=== PATIENT | male | born 1950 | race Two or more races ===

== ENCOUNTER 2021-02-28 15:21 | Inpatient (IN) | payer MEDICARE, MEDICAID ==
[~2021-02-28] VITALS: Ht 182.9 cm; Wt 76.7 kg
[2021-02-28] MEDS ORDERED: HYDROCODONE/ACETAMINOPHEN 5/325MG TABLET PO STA (18:25)
[2021-02-28] MEDS ORDERED: SODIUM CHLORIDE 0.9% 1,000 ML IV ONE (18:30)
[2021-02-28 22:55] LABS: BASOPHILS % 0.5 % (0.0-2.0); EOSINOPHILS % 1.6 % (0.0-5.0); HEMATOCRIT. 31.6 % (42.0-52.0); HEMOGLOBIN. 10.7 g/dL (14.0-18.0); LYMPHOCYTES % 20.6 % (20.0-50.0); MEAN CORPUSCULAR HEMOGLOBIN 31.7 pg (28.0-32.0); MEAN CORPUSCULAR VOLUME 93.6 fL (80.0-94.0); MEAN PLATELET VOLUME 7.8 fl (7.4-10.4); MONOCYTES % 6.6 % (2.0-8.0); NEUTROPHILS % 70.7 % (40.0-76.0); PLATELET 364 x1000/uL (130-400); RED BLOOD CELL COUNT 3.37 mill/uL (4.7-6.1); RED CELL DISTRIBUTION WIDTH 15.1 % (11.6-14.6)
[2021-02-28 23:08] LABS: CHLORIDE 112 mEq/L (98-107)
[2021-02-28 23:17] LABS: CREATINE KINASE 107 IU/L (39-308)
[2021-03-01] VITALS (7 sets, daily range): BP systolic 111–163; BP diastolic 68–92
[2021-03-01] MEDS ORDERED: NALOXONE HCL 0.4MG/ML VIAL IV PRN (09:00)
[2021-03-01] MEDS ORDERED: ACETAMINOPHEN 325MG TABLET PO PRN (09:00)
[2021-03-01] MEDS ORDERED: ONDANSETRON HCL 4MG/2ML INJ IV PRN (09:00)
[2021-03-01] MEDS: HYDROCODONE/ACETAMINOPHEN 5/325MG TABLET PO PRN ×2 (19:02→23:56)
[2021-03-02] VITALS: BP 140/74
[2021-03-02 08:00] VITALS: BP 140/71
[2021-03-02] MEDS ORDERED: CLONIDINE 0.1MG TABLET PO PRN ×2 (11:45→17:00)
[2021-03-02] MEDS ORDERED: IPRATROPIUM/ALBUTEROL 0.5-3(2.5)MG/3ML NEB HHN PRN (11:45)
[2021-03-02 12:00] VITALS: BP 107/69
[2021-03-02] MEDS: DEXT 5%/0.45% NACL 1000ML 1,000 ML IV SCH (12:41)
[2021-03-02] MEDS: MULTIVITAMINS,THER W-MINERALS TABLET PO SCH (12:42)
[2021-03-02] MEDS: FOLIC ACID 1MG TABLET PO SCH (12:42)
[2021-03-02] MEDS: THIAMINE HCL 100MG TABLET PO SCH (12:43)
[2021-03-02] MEDS: ENOXAPARIN 40MG/0.4ML SYR SUBCUT SCH (12:47)
[2021-03-02 16:00] VITALS: BP 143/80
[2021-03-02] MEDS: AMLODIPINE 2.5MG TABLET PO SCH (17:31)
[2021-03-02] MEDS: HYDROCODONE/ACETAMINOPHEN 5/325MG TABLET PO PRN ×2 (17:33→22:52)
[2021-03-02 17:35] LABS: PROTHROMBIN TIME 10.7 sec (9.6-11.0)
[2021-03-02 17:40] LABS: CHLORIDE 104 mEq/L (98-107)
[2021-03-02 17:42] LABS: BASOPHILS % 0.5 % (0.0-2.0); EOSINOPHILS % 0.4 % (0.0-5.0); HEMATOCRIT. 32.4 % (42.0-52.0); HEMOGLOBIN. 10.9 g/dL (14.0-18.0); LYMPHOCYTES % 10.6 % (20.0-50.0); MEAN CORPUSCULAR HEMOGLOBIN 31.7 pg (28.0-32.0); MONOCYTES % 5.3 % (2.0-8.0); NEUTROPHILS % 83.2 % (40.0-76.0); PLATELET 333 x1000/uL (130-400); RED BLOOD CELL COUNT 3.45 mill/uL (4.7-6.1); RED CELL DISTRIBUTION WIDTH 14.7 % (11.6-14.6)
[2021-03-02 17:47] LABS: LDL CHOLESTEROL 55 mg/dL (5-100)
[2021-03-02 17:48] LABS: HDL CHOLESTEROL 43 mg/dL (40-59)
[2021-03-02 20:00] VITALS: BP 136/78
[2021-03-02] MEDS: FAMOTIDINE 20MG TABLET PO SCH (20:04)
[2021-03-03] MEDS: DEXT 5%/0.45% NACL 1000ML 1,000 ML IV SCH ×2 (01:20→14:40)
[2021-03-03] MEDS: MORPHINE SULFATE 2 MG/ML CPJ (NOT FOR IM USE) IV PRN ×2 (04:03→20:04)
[2021-03-03 06:29] LABS: BASOPHILS % 0.6 % (0.0-2.0); EOSINOPHILS % 1.4 % (0.0-5.0); HEMATOCRIT. 30.5 % (42.0-52.0); HEMOGLOBIN. 10.3 g/dL (14.0-18.0); LYMPHOCYTES % 18.1 % (20.0-50.0); MEAN CORPUSCULAR HEMOGLOBIN 31.8 pg (28.0-32.0); MEAN CORPUSCULAR VOLUME 94.1 fL (80.0-94.0); MEAN PLATELET VOLUME 7.9 fl (7.4-10.4); MONOCYTES % 6.4 % (2.0-8.0); NEUTROPHILS % 73.5 % (40.0-76.0); PLATELET 325 x1000/uL (130-400); PROTHROMBIN TIME 10.7 sec (9.6-11.0); RED BLOOD CELL COUNT 3.24 mill/uL (4.7-6.1); RED CELL DISTRIBUTION WIDTH 15.3 % (11.6-14.6)
[2021-03-03 06:41] LABS: CHLORIDE 104 mEq/L (98-107)
[2021-03-03 06:51] LABS: T4 FREE 1.17 ng/dL (0.76-1.46)
[2021-03-03 08:17] VITALS: BP 153/81
[2021-03-03] MEDS: MULTIVITAMINS,THER W-MINERALS TABLET PO SCH (09:00)
[2021-03-03] MEDS: THIAMINE HCL 100MG TABLET PO SCH (09:00)
[2021-03-03] MEDS: FOLIC ACID 1MG TABLET PO SCH (09:00)
[2021-03-03] MEDS: AMLODIPINE 2.5MG TABLET PO SCH (09:00)
[2021-03-03] MEDS: ENOXAPARIN 40MG/0.4ML SYR SUBCUT SCH (12:00)
[2021-03-03 12:21] VITALS: BP 129/82
[2021-03-03] MEDS ORDERED: LIDOCAINE HCL/EPINEPHRINE 1%-EPI 1:100,000 20 ML VIAL ONE (12:44)
[2021-03-03] MEDS ORDERED: VANCOMYCIN HCL 1 GM/VIAL ONE (12:44)
[2021-03-03] MEDS ORDERED: BUPIVACAINE HCL/PF 0.5% (5MG/ML) 10ML ONE (12:44)
[2021-03-03] MEDS ORDERED: POLYMYXIN B SULFATE 500000 UNITS/VIAL ONE (12:44)
[2021-03-03] MEDS ORDERED: PHENYLEPHRINE HCL 10 MG/ML 1ML (IV VIAL) IV ONE (13:15)
[2021-03-03] MEDS ORDERED: PROPOFOL 200MG/20ML VIAL IV ONE (13:15)
[2021-03-03] MEDS ORDERED: FENTANYL CITRATE/PF 50MCG/ML 2ML VIAL ONE (13:42)
[2021-03-03] MEDS ORDERED: MIDAZOLAM HCL 2 MG/2 ML VIAL ONE (13:43)
[2021-03-03] MEDS ORDERED: MEPERIDINE HCL/PF 25MG/ML CPJ IV PRN (14:00)
[2021-03-03] MEDS ORDERED: HYDROMORPHONE HCL/PF 2MG/ML CPJ IV PRN (14:00)
[2021-03-03] MEDS ORDERED: FENTANYL CITRATE/PF 50MCG/ML 2ML VIAL IV PRN (14:00)
[2021-03-03] MEDS ORDERED: HYDROCODONE/ACETAMINOPHEN 5/325MG TABLET PO PRN (14:15)
[2021-03-03] MEDS: HYDROCODONE/ACETAMINOPHEN 5/325MG TABLET PO PRN (17:06)
[2021-03-03] MEDS: LORAZEPAM 2MG/ML CPJ IV PRN (17:07)
[2021-03-03] MEDS: AMLODIPINE 5MG TABLET PO SCH (17:22)
[2021-03-03 20:00] VITALS: BP 128/78
[2021-03-03] MEDS: CEFAZOLIN 2,000 MG in DEXT 5% WATER 100 ML IV SCH (20:03)
[2021-03-03] MEDS: FAMOTIDINE 20MG TABLET PO SCH (20:03)
[2021-03-04] VITALS: BP 132/75
[2021-03-04] MEDS: CEFAZOLIN 2,000 MG in DEXT 5% WATER 100 ML IV SCH ×4 (00:57→22:56)
[2021-03-04 04:00] VITALS: BP 118/76
[2021-03-04] MEDS: DEXT 5%/0.45% NACL 1000ML 1,000 ML IV SCH (04:00)
[2021-03-04 06:37] LABS: BASOPHILS % 0.1 % (0.0-2.0); CHLORIDE 102 mEq/L (98-107); EOSINOPHILS % 0.2 % (0.0-5.0); HEMATOCRIT. 29.9 % (42.0-52.0); HEMOGLOBIN. 10.2 g/dL (14.0-18.0); LYMPHOCYTES % 7.5 % (20.0-50.0); MEAN CORPUSCULAR HEMOGLOBIN 32.6 pg (28.0-32.0); MEAN CORPUSCULAR VOLUME 95.1 fL (80.0-94.0); MONOCYTES % 6.3 % (2.0-8.0); NEUTROPHILS % 85.9 % (40.0-76.0); PLATELET 354 x1000/uL (130-400); RED BLOOD CELL COUNT 3.14 mill/uL (4.7-6.1); RED CELL DISTRIBUTION WIDTH 14.9 % (11.6-14.6)
[2021-03-04 08:00] VITALS: BP 125/77
[2021-03-04] MEDS: FOLIC ACID 1MG TABLET PO SCH (08:16)
[2021-03-04] MEDS: MULTIVITAMINS,THER W-MINERALS TABLET PO SCH (08:16)
[2021-03-04] MEDS: THIAMINE HCL 100MG TABLET PO SCH (08:16)
[2021-03-04] MEDS: AMLODIPINE 5MG TABLET PO SCH ×3 (08:17→16:59)
[2021-03-04] MEDS: ENOXAPARIN 40MG/0.4ML SYR SUBCUT SCH (11:14)
[2021-03-04 12:00] VITALS: BP 131/81
[2021-03-04 16:00] VITALS: BP 142/82
[2021-03-04] MEDS: LORAZEPAM 2MG/ML CPJ IV PRN ×2 (16:49→22:56)
[2021-03-04] MEDS: HYDROCODONE/ACETAMINOPHEN 5/325MG TABLET PO PRN (16:49)
[2021-03-04 20:00] VITALS: BP 123/73
[2021-03-04] MEDS: FAMOTIDINE 20MG TABLET PO SCH (20:29)
[2021-03-05] VITALS: BP 140/74
[2021-03-05 04:00] VITALS: BP 136/74
[2021-03-05] MEDS: CEFAZOLIN 2,000 MG in DEXT 5% WATER 100 ML IV SCH ×2 (06:38→15:30)
[2021-03-05] MEDS: DEXT 5%/0.45% NACL 1000ML 1,000 ML IV SCH (06:43)
[2021-03-05] MEDS: LORAZEPAM 2MG/ML CPJ IV PRN (06:48)
[2021-03-05 06:56] LABS: BASOPHILS % 0.3 % (0.0-2.0); EOSINOPHILS % 1.7 % (0.0-5.0); HEMATOCRIT. 29.1 % (42.0-52.0); HEMOGLOBIN. 9.5 g/dL (14.0-18.0); LYMPHOCYTES % 14.1 % (20.0-50.0); MEAN CORPUSCULAR HEMOGLOBIN 30.9 pg (28.0-32.0); MEAN CORPUSCULAR VOLUME 94.8 fL (80.0-94.0); MONOCYTES % 8.3 % (2.0-8.0); NEUTROPHILS % 75.6 % (40.0-76.0); PLATELET 298 x1000/uL (130-400); RED BLOOD CELL COUNT 3.07 mill/uL (4.7-6.1); RED CELL DISTRIBUTION WIDTH 15.6 % (11.6-14.6)
[2021-03-05 07:41] LABS: CHLORIDE 106 mEq/L (98-107)
[2021-03-05 08:00] VITALS: BP 147/84
[2021-03-05] MEDS: FOLIC ACID 1MG TABLET PO SCH (09:52)
[2021-03-05] MEDS: THIAMINE HCL 100MG TABLET PO SCH (09:52)
[2021-03-05] MEDS: MULTIVITAMINS,THER W-MINERALS TABLET PO SCH (09:53)
[2021-03-05] MEDS: AMLODIPINE 5MG TABLET PO SCH ×2 (09:53→17:45)
[2021-03-05 12:00] VITALS: BP 118/65
[2021-03-05] MEDS: ENOXAPARIN 40MG/0.4ML SYR SUBCUT SCH (13:00)
[2021-03-05 16:00] VITALS: BP 118/67
[2021-03-05 16:08] VITALS: BP 134/78
== END 2021-03-05 18:25 | DRG 480 ==
LOC: ER 15:21 → 6EST 23:42 → ENRESERV 03-01 05:06
PROVIDERS: ADMIT Internal Medicine; ATTEND Internal Medicine
PROC: 0QS706Z Reposition Left Upper Femur with Intramedullary Internal Fixation Device, Open Approach (ICD-10-PCS; principal; 2021-03-03)
PROC: BQ111ZZ Fluoroscopy of Left Hip using Low Osmolar Contrast (ICD-10-PCS; 2021-03-03)
DX: S72.142A Displaced intertrochanteric fracture of left femur, initial encounter for closed fracture (principal); E43 Unspecified severe protein-calorie malnutrition; D64.9 Anemia, unspecified; E87.8 Other disorders of electrolyte and fluid balance, not elsewhere classified; I10 Essential (primary) hypertension; E86.0 Dehydration; F10.10 Alcohol abuse, uncomplicated; F17.210 Nicotine dependence, cigarettes, uncomplicated; I27.20 Pulmonary hypertension, unspecified; R62.7 Adult failure to thrive; R26.89 Other abnormalities of gait and mobility; Z60.2 Problems related to living alone; Z20.822 Contact with and (suspected) exposure to COVID-19; W06.XXXA Fall from bed, initial encounter; J44.9 Chronic obstructive pulmonary disease, unspecified; Z68.22 Body mass index [BMI] 22.0-22.9, adult; Y93.89 Activity, other specified; Y92.89 Other specified places as the place of occurrence of the external cause; Y99.8 Other external cause status
CPT/HCPCS: 36415; 73030; 73502; 73562; 76000; 80048; 80053; 80061; 82550; 83735; 84439; 84443; 85025; 86850; 86900; 87426; 93005; 93306; 93971; 99285; C1713; C1893; J0690; J1650; J2060; J2250; J2270; J2370; J2405; J2704; J3010; J3370; J3490; J7030; J7060

== ENCOUNTER 2021-04-24 12:19 | Emergency (ER) | payer MEDICARE, MEDICAID ==
[~2021-04-24] VITALS: Ht 180.3 cm; Wt 91.0 kg
[2021-04-24] MEDS ORDERED: CEFTRIAXONE 1 G PREMIX 50 ML IV ONE (12:45)
[2021-04-24] MEDS ORDERED: VANCOMYCIN 1G PREMIX 200 ML IV ONE (12:45)
[2021-04-24] MEDS ORDERED: VANCOMYCIN 1GM PMX (XELLIA) 200 ML IV NR (13:00)
[2021-04-24 13:31] LABS: MEAN CORPUSCULAR HEMOGLOBIN 27.1 pg (28.0-32.0); MEAN CORPUSCULAR VOLUME 86.8 fL (80.0-94.0); MEAN PLATELET VOLUME 7.3 fl (7.4-10.4); PLATELET 772 x1000/uL (130-400); RED BLOOD CELL COUNT 2.07 mill/uL (4.7-6.1); RED CELL DISTRIBUTION WIDTH 20.1 % (11.6-14.6)
[2021-04-24 13:39] LABS: HEMATOCRIT. 17.9 % (42.0-52.0); HEMOGLOBIN. 5.6 g/dL (14.0-18.0)
[2021-04-24 13:41] LABS: CHLORIDE 106 mEq/L (98-107)
[2021-04-24 14:00] LABS: PLATELET ESTIMATE MARKEDLY INCREASED
[2021-04-24] MEDS ORDERED: CLINDAMYCIN 600 MG in DEXTROSE 5% WATER 50 ML IV ONE (14:15)
[2021-04-24] MEDS ORDERED: SODIUM CHLORIDE 0.9% 1000ML BAG (SEPSIS BOLUS) IV SCH (14:15)
[2021-04-24] MEDS ORDERED: CLINDAMYCIN 600MG PREMIX 50 ML IV SCH (14:15)
[2021-04-24 14:22] LABS: CREATINE KINASE 1341 IU/L (39-308)
[2021-04-24] MEDS ORDERED: SENNOSIDES 8.6MG TABLET PO PRN (16:30)
[2021-04-24] MEDS ORDERED: IPRATROPIUM/ALBUTEROL 0.5-3(2.5)MG/3ML NEB NEB PRN (16:45)
[2021-04-24] MEDS ORDERED: CEFTRIAXONE 1 G PREMIX 50 ML IV SCH (16:45)
[2021-04-24] MEDS ORDERED: HYDROCODONE/ACETAMINOPHEN 5/325MG TABLET PO PRN (16:45)
[2021-04-24] MEDS ORDERED: ACETAMINOPHEN 325MG TABLET PO PRN (16:45)
[2021-04-24] MEDS ORDERED: GUAIFENESIN 200MG/10ML SUGAR FREE UDC PO PRN (16:45)
[2021-04-24] MEDS ORDERED: MORPHINE SULFATE 2 MG/ML CPJ (NOT FOR IM USE) IV PRN (16:45)
[2021-04-24] MEDS ORDERED: DIPHENHYDRAMINE 50MG/ML VIAL IV PRN (16:45)
[2021-04-24] MEDS ORDERED: ACETAMINOPHEN 650MG SUPP PR PRN (16:45)
[2021-04-24] MEDS ORDERED: MAGNESIUM/ALUMINUM HYDROXIDE/SIMETHICONE 30ML UDC PO PRN (16:45)
[2021-04-24] MEDS ORDERED: MORPHINE SULFATE 4 MG/ML CPJ (NOT FOR IM USE) IV ONE (16:45)
[2021-04-24] MEDS ORDERED: NA PHOS,M-B/NA PHOS,DI-BA ENEMA 118ML PR PRN (16:45)
[2021-04-24] MEDS ORDERED: LORAZEPAM 0.5MG TABLET PO PRN (16:45)
[2021-04-24] MEDS ORDERED: CLONIDINE 0.1MG TABLET PO PRN (16:45)
[2021-04-24] MEDS ORDERED: ONDANSETRON HCL 4MG/2ML INJ IV PRN (16:45)
[2021-04-24] MEDS ORDERED: DOCUSATE SODIUM 100MG CAPSULE PO PRN (16:45)
[2021-04-24] MEDS ORDERED: NALOXONE HCL 0.4MG/ML VIAL IV PRN (17:00)
[2021-04-24] MEDS ORDERED: DOCUSATE SODIUM 100MG CAPSULE PO SCH (17:00)
[2021-04-24] MEDS ORDERED: PANTOPRAZOLE SODIUM 40 MG/VIAL IV SCH (17:00)
[2021-04-24 17:32] LABS: CLARITY URINE CLEAR (CLEAR); COLOR URINE YELLOW (YELLOW); KETONES URINE NEGATIVE (NEGATIVE); LEUKOCYTE ESTERASE URINE 1+ (NEGATIVE); NITRITE URINE NEGATIVE (NEGATIVE); OCCULT BLOOD URINE NEGATIVE (NEGATIVE); PROTEIN URINE NEGATIVE (NEGATIVE); SPECIFIC GRAVITY URINE 1.011 (1.005-1.030)
[2021-04-24] MEDS ORDERED: MVI, ADULT NO.1 10 ML, FOLIC ACID 1 MG, THIAMINE HCL 100 MG in DEXT 5%/0.45% NACL 1000M... IV SCH ×4 (18:00)
[2021-04-24 18:06] LABS: *BARBITURATES SCREEN URINE NEGATIVE (NEGATIVE)
[2021-04-24 18:07] LABS: *AMPHETAMINES SCREEN URINE NEGATIVE (NEGATIVE); *BENZODIAZEPINES SCREEN URINE NEGATIVE (NEGATIVE); *COCAINE SCREEN URINE NEGATIVE (NEGATIVE); CANNABINOID URINE SCREEN PRESUMTIVE POSITIVE (NEGATIVE); OPIATES URINE SCREEN PRESUMTIVE POSITIVE (NEGATIVE); PHENCYCLIDINE URINE SCREEN NEGATIVE (NEGATIVE)
[2021-04-24 18:51] LABS: PROTHROMBIN TIME 10.8 sec (9.6-11.0)
[2021-04-24 21:06] VITALS: BP 119/64
[2021-04-25] MEDS ORDERED: VANCOMYCIN 750MG PREMIX 150 ML IV SCH (06:00)
[2021-04-25] MEDS ORDERED: CEFTRIAXONE 1,000 MG in DEXTROSE 5% WATER 50 ML IV SCH (09:00)
[2021-04-27 12:54] LABS: METHADONE URINE SCREEN NEGATIVE (NEGATIVE)
== END 2021-04-24 22:56 | disposition short-term general hospital (02) ==
LOC: ER 12:19
DX: S72.92XA Unspecified fracture of left femur, initial encounter for closed fracture (principal); Z20.822 Contact with and (suspected) exposure to COVID-19; W18.30XA Fall on same level, unspecified, initial encounter; Y93.89 Activity, other specified; Y92.89 Other specified places as the place of occurrence of the external cause; Y99.8 Other external cause status
CPT/HCPCS: 29505; 36415; 73552; 73560; 73590; 73610; 73700; 74176; 80053; 80305; 81003; 82550; 82728; 83605; 84145; 85025; 85610; 86850; 86900; 86901; 86920; 87040; 87086; 87426; 93971; 96365; 96367; 96368; 96375; 99291; C9113; J0696; J2270; J3370; J3411; J3490; 99285; P9016